=== PATIENT | female | born 1980 | race Caucasian/White ===

== ENCOUNTER 2020-08-27 13:13 | Inpatient (IN) | payer MEDICARE, MEDICAID ==
[~2020-08-27] VITALS: Ht 177.8 cm; Wt 82.8 kg
[~2020-08-27 13:13] MED LIST: LORA-999 PO; OLAN2.5T3 PO
[2020-08-27] MEDS ORDERED: HALOPERIDOL 5 MG TABLET PO PRN (13:30)
[2020-08-27] MEDS ORDERED: FOLI-130 PO (15:17)
[2020-08-27] MEDS ORDERED: BUSP10TA23 PO (15:17)
[2020-08-27] MEDS ORDERED: MULT-248 PO (15:18)
[2020-08-27] MEDS ORDERED: OLAN10TA74 PO (15:18)
[2020-08-27] MEDS ORDERED: THIA100T80 PO (15:19)
[2020-08-27] MEDS ORDERED: LORA-999 PO (15:20)
[2020-08-27] MEDS: LORazepam 2 MG TABLET PO PRN (18:24)
[2020-08-27 18:44] VITALS: BP 108/75
[2020-08-28 01:59] VITALS: BP 111/72
[2020-08-28] MEDS ORDERED: NICOTINE 14 MG/24 HOUR PATCH TD PRN (08:15)
[2020-08-28] MEDS ORDERED: LOPERAMIDE HCL 2 MG CAPSULE PO PRN (08:15)
[2020-08-28] MEDS ORDERED: ONDANSETRON HCL 4 MG TABLET PO PRN (08:15)
[2020-08-28] MEDS ORDERED: MAG HYDROX/AL HYDROX/SIMETH ES 30 ML SUSPENSION UDCUP PO PRN (08:15)
[2020-08-28] MEDS ORDERED: GuaiFENesin/D-METHORPHAN [SUGAR-FREE] 200-20MG/10 ML SYRUP UDCUP PO PRN (08:15)
[2020-08-28] MEDS ORDERED: CloNIDine HCL 0.1 MG TABLET PO PRN (08:15)
[2020-08-28] MEDS ORDERED: PETROLATUM,WHITE 28 GM JELLY TP PRN (08:15)
[2020-08-28] MEDS ORDERED: MAGNESIUM HYDROXIDE SUSPENSION 30 ML UDCUP PO PRN (08:15)
[2020-08-28] MEDS ORDERED: ALBUTEROL SULFATE HFA 90 MCG/PUFF 8 GM INHALER IH PRN (08:15)
[2020-08-28] MEDS ORDERED: ACETAMINOPHEN 325 MG TABLET PO PRN (08:15)
[2020-08-28] MEDS: BusPIRone HCL 10 MG TABLET PO SCH (09:17)
[2020-08-28] MEDS: THIAMINE 100 MG TABLET PO SCH (09:18)
[2020-08-28] MEDS: MULTIVITAMINS WITH MINERALS, THERAPEUTIC TABLET PO SCH (09:18)
[2020-08-28 10:42] VITALS: BP 105/65
[2020-08-28] MEDS: IBUPROFEN 400 MG TABLET PO PRN ×2 (10:45→20:24)
[2020-08-28 17:32] VITALS: BP 100/73
[2020-08-28] MEDS: OLANZapine 10 MG TABLET PO SCH (20:24)
[2020-08-28] MEDS: ZOLPIDEM TARTRATE 10 MG TABLET PO PRN (21:23)
[2020-08-29 05:45] VITALS: BP 102/62
[2020-08-29] MEDS: BENZOCAINE 10% 7 GM GEL TP PRN ×2 (06:17→14:55)
[2020-08-29 08:15] VITALS: BP 108/67
[2020-08-29] MEDS: BusPIRone HCL 10 MG TABLET PO SCH ×2 (09:38→20:13)
[2020-08-29] MEDS: MULTIVITAMINS WITH MINERALS, THERAPEUTIC TABLET PO SCH (09:38)
[2020-08-29] MEDS: LORazepam 2 MG TABLET PO PRN (09:38)
[2020-08-29] MEDS: THIAMINE 100 MG TABLET PO SCH (10:30)
[2020-08-29] MEDS: IBUPROFEN 400 MG TABLET PO PRN (15:01)
[2020-08-29] MEDS: OLANZapine 10 MG TABLET PO SCH (20:13)
[2020-08-29] MEDS: ZOLPIDEM TARTRATE 10 MG TABLET PO PRN (20:13)
[2020-08-30 06:07] VITALS: BP 106/65
[2020-08-30] MEDS: BusPIRone HCL 10 MG TABLET PO SCH ×2 (08:40→20:23)
[2020-08-30] MEDS: THIAMINE 100 MG TABLET PO SCH (08:40)
[2020-08-30] MEDS: LORazepam 2 MG TABLET PO PRN ×2 (08:40→20:23)
[2020-08-30] MEDS: MULTIVITAMINS WITH MINERALS, THERAPEUTIC TABLET PO SCH (08:40)
[2020-08-30 16:18] VITALS: BP 100/67
[2020-08-30] MEDS: OLANZapine 10 MG TABLET PO SCH (20:23)
[2020-08-30] MEDS: IBUPROFEN 400 MG TABLET PO PRN (20:26)
[2020-08-31 02:06] VITALS: BP 115/68
[2020-08-31 08:25] VITALS: BP 100/60
[2020-08-31] MEDS: THIAMINE 100 MG TABLET PO SCH (09:01)
[2020-08-31] MEDS: MULTIVITAMINS WITH MINERALS, THERAPEUTIC TABLET PO SCH (09:01)
[2020-08-31] MEDS: BusPIRone HCL 10 MG TABLET PO SCH ×2 (09:01→20:27)
[2020-08-31 16:41] VITALS: BP 100/65
[2020-08-31] MEDS: BENZOCAINE 10% 7 GM GEL TP PRN (16:44)
[2020-08-31] MEDS: LORazepam 2 MG TABLET PO PRN (16:45)
[2020-08-31] MEDS: IBUPROFEN 400 MG TABLET PO PRN (16:45)
[2020-08-31] MEDS: OLANZapine 10 MG TABLET PO SCH (20:27)
[2020-09-01 01:23] VITALS: BP 112/69
[2020-09-01] MEDS: MULTIVITAMINS WITH MINERALS, THERAPEUTIC TABLET PO SCH (08:10)
[2020-09-01] MEDS: BusPIRone HCL 10 MG TABLET PO SCH ×2 (08:10→20:17)
[2020-09-01] MEDS: THIAMINE 100 MG TABLET PO SCH (08:10)
[2020-09-01 08:34] VITALS: BP 124/83
[2020-09-01 16:20] VITALS: BP 103/72
[2020-09-01] MEDS: OLANZapine 10 MG TABLET PO SCH (20:17)
[2020-09-02 08:34] VITALS: BP 114/74
[2020-09-02] MEDS: THIAMINE 100 MG TABLET PO SCH (08:39)
[2020-09-02] MEDS: MULTIVITAMINS WITH MINERALS, THERAPEUTIC TABLET PO SCH (08:39)
[2020-09-02] MEDS: BusPIRone HCL 10 MG TABLET PO SCH ×2 (08:39→20:38)
[2020-09-02 16:34] VITALS: BP 101/63
[2020-09-02] MEDS: ZOLPIDEM TARTRATE 10 MG TABLET PO PRN (20:38)
[2020-09-02] MEDS: OLANZapine 10 MG TABLET PO SCH (20:38)
[2020-09-03 04:52] VITALS: BP 114/76
[2020-09-03] MEDS: THIAMINE 100 MG TABLET PO SCH (09:34)
[2020-09-03] MEDS: MULTIVITAMINS WITH MINERALS, THERAPEUTIC TABLET PO SCH (09:34)
[2020-09-03] MEDS: BusPIRone HCL 10 MG TABLET PO SCH ×2 (09:34→21:00)
[2020-09-03 17:11] VITALS: BP 102/65
[2020-09-03] MEDS: OLANZapine 10 MG TABLET PO SCH (20:19)
[2020-09-04 05:49] VITALS: BP 110/61
[2020-09-04 09:14] VITALS: BP 114/73
[2020-09-04] MEDS: BusPIRone HCL 10 MG TABLET PO SCH ×2 (10:46→21:00)
[2020-09-04] MEDS: THIAMINE 100 MG TABLET PO SCH (10:46)
[2020-09-04] MEDS: MULTIVITAMINS WITH MINERALS, THERAPEUTIC TABLET PO SCH (10:46)
[2020-09-04 18:13] VITALS: BP 91/59
[2020-09-04] MEDS: OLANZapine 10 MG TABLET PO SCH (20:25)
[2020-09-05 00:38] VITALS: BP 108/60
[2020-09-05] MEDS: MULTIVITAMINS WITH MINERALS, THERAPEUTIC TABLET PO SCH (08:45)
[2020-09-05] MEDS: BusPIRone HCL 10 MG TABLET PO SCH ×2 (08:45→20:27)
[2020-09-05] MEDS: THIAMINE 100 MG TABLET PO SCH (08:45)
[2020-09-05 16:21] VITALS: BP 125/69
[2020-09-05] MEDS: DOCUSATE SODIUM 100 MG CAPSULE PO PRN (19:12)
[2020-09-05] MEDS: OLANZapine 10 MG TABLET PO SCH (20:27)
[2020-09-06 04:00] VITALS: BP 124/68
[2020-09-06 08:28] VITALS: BP 121/84
[2020-09-06] MEDS: MULTIVITAMINS WITH MINERALS, THERAPEUTIC TABLET PO SCH (09:04)
[2020-09-06] MEDS: BusPIRone HCL 10 MG TABLET PO SCH ×2 (09:04→20:01)
[2020-09-06] MEDS: THIAMINE 100 MG TABLET PO SCH (09:04)
[2020-09-06 16:00] VITALS: BP 103/64
[2020-09-06] MEDS: OLANZapine 10 MG TABLET PO SCH (20:01)
[2020-09-06] MEDS: DOCUSATE SODIUM 100 MG CAPSULE PO PRN (20:09)
[2020-09-07] VITALS: BP 107/56
[2020-09-07] MEDS: THIAMINE 100 MG TABLET PO SCH (08:41)
[2020-09-07] MEDS: BusPIRone HCL 10 MG TABLET PO SCH ×2 (08:41→20:32)
[2020-09-07] MEDS: MULTIVITAMINS WITH MINERALS, THERAPEUTIC TABLET PO SCH (08:41)
[2020-09-07 16:12] VITALS: BP 106/70
[2020-09-07] MEDS: OLANZapine 10 MG TABLET PO SCH (20:34)
[2020-09-08 08:43] VITALS: BP 110/71
[2020-09-08] MEDS: MULTIVITAMINS WITH MINERALS, THERAPEUTIC TABLET PO SCH (09:02)
[2020-09-08] MEDS: THIAMINE 100 MG TABLET PO SCH (09:02)
[2020-09-08] MEDS: BusPIRone HCL 10 MG TABLET PO SCH ×2 (09:02→20:25)
[2020-09-08] MEDS: OLANZapine 10 MG TABLET PO SCH (20:26)
[2020-09-09] MEDS: BusPIRone HCL 10 MG TABLET PO SCH ×2 (08:40→21:07)
[2020-09-09] MEDS: MULTIVITAMINS WITH MINERALS, THERAPEUTIC TABLET PO SCH (08:45)
[2020-09-09] MEDS: THIAMINE 100 MG TABLET PO SCH (08:45)
[2020-09-09] MEDS: ZOLPIDEM TARTRATE 10 MG TABLET PO PRN (21:07)
[2020-09-09] MEDS: OLANZapine 10 MG TABLET PO SCH (21:08)
[2020-09-10 05:32] VITALS: BP 114/70
[2020-09-10] MEDS: BusPIRone HCL 10 MG TABLET PO SCH ×2 (08:17→20:52)
[2020-09-10] MEDS: THIAMINE 100 MG TABLET PO SCH (08:20)
[2020-09-10] MEDS: MULTIVITAMINS WITH MINERALS, THERAPEUTIC TABLET PO SCH (08:20)
[2020-09-10 08:25] VITALS: BP 123/78
[2020-09-10] MEDS: OLANZapine 10 MG TABLET PO SCH (20:52)
[2020-09-11 08:08] VITALS: BP 116/60
[2020-09-11] MEDS: MULTIVITAMINS WITH MINERALS, THERAPEUTIC TABLET PO SCH (08:26)
[2020-09-11] MEDS: BusPIRone HCL 10 MG TABLET PO SCH (08:26)
[2020-09-11] MEDS: THIAMINE 100 MG TABLET PO SCH (08:35)
[2020-09-11] MEDS ORDERED: BUSP10TA23 PO (09:04)
[2020-09-11] MEDS ORDERED: OLAN10TA74 PO ×2 (09:04→09:25)
[2020-09-11] MEDS ORDERED: BUSP7.5T7 PO (09:24)
== END 2020-09-11 22:08 | disposition home or self-care (01) | DRG 885 ==
LOC: B2X 16:57 → B3A 18:28
DX: F25.0 Schizoaffective disorder, bipolar type (principal); R45.851 Suicidal ideations; F41.9 Anxiety disorder, unspecified; F15.10 Other stimulant abuse, uncomplicated; F17.210 Nicotine dependence, cigarettes, uncomplicated; K08.89 Other specified disorders of teeth and supporting structures; F10.10 Alcohol abuse, uncomplicated; Z59.0 Homelessness; Z79.899 Other long term (current) drug therapy; R10.13 Epigastric pain
CPT/HCPCS: Z7610